=== PATIENT | male | born 1950 | race Two or more races ===

== ENCOUNTER 2020-12-02 14:13 | Emergency (ER) | payer MEDICARE, BC ==
[~2020-12-02] VITALS: Ht 185.4 cm; Wt 98.0 kg
[2020-12-02 16:08] VITALS: BP 150/81
== END 2020-12-02 16:14 | disposition home or self-care (01) ==
LOC: EDSEX 14:13 → ER 14:13
DX: S93.402A Sprain of unspecified ligament of left ankle, initial encounter (principal); I10 Essential (primary) hypertension; W19.XXXA Unspecified fall, initial encounter; Y93.89 Activity, other specified; Y92.89 Other specified places as the place of occurrence of the external cause; Y99.8 Other external cause status
CPT/HCPCS: 73610